=== PATIENT | female | born 1950 | race Caucasian/White ===

== ENCOUNTER 2016-06-20 08:02 | Emergency (ER) | payer MEDICARE, OTHER ==
[~2016-06-20] VITALS: Ht 157.5 cm; Wt 67.0 kg
[~2016-06-20 08:02] MED LIST: AMO500 PO; ESOM20CA PO; ESOM40CA PO; FLUT12HF4 IH; FLUT1DIS22 IH; HYDR-3498 PO; IPRA12.93 IH; NAPR-260 PO
[2016-06-20 08:04] VITALS: Ht 157.5 cm; Wt 67.0 kg
[2016-06-20] MEDS ORDERED: IPRATROPIUM (NEB) 0.5 MG/2.5 ML AMP NEB STA (08:41)
[2016-06-20] MEDS ORDERED: ALBUTEROL 0.5% (NEB) 2.5 MG/0.5 ML AMP NEB STA (08:41)
[2016-06-20] MEDS ORDERED: [UNRECOGNIZED DRUG - CODE] MC (08:57)
[2016-06-20] MEDS ORDERED: ALBU2.5V3 NEB (08:57)
[2016-06-20] MEDS ORDERED: PROM5SYR2 PO (09:00)
--- NOTE | 2016-06-20 09:08 | ERD ---
ER Documentation Chief Complaint Date/Time DATE: 06/20/16 TIME: 09:04 Chief Complaint cough since yesterday HPI This is a 66-year-old female with a history of asthma presenting to the emergency department complaining of cough, congestion, sore throat since yesterday. Patient states that she used albuterol at home and it did not help her. She denies any chest pain or shortness of breath. Patient has tried albuterol and Advair. She denies taking any other medications. ROS All systems reviewed and are negative except as per history of present illness. Medications Home Meds Active Scripts Promethazine HCl/Codeine (Prometh-Codein 6.25-10 mg/5 ml) 5 Ml Syrup, 5 ML PO Q6 , #60 Prov:AMARIS GRACIA PA-C 06/20/16 Nebulizer (AEROECLIPSE) 1 Each Each, 1 EACH MC, #1 Prov:AMARIS GRACIA PA-C 06/20/16 Albuterol Sulfate* (Albuterol Sulfate* Neb) 0.083%-3 Ml Neb, 2.5 MG NEB Q4 Y for SHORTNESS OF BREATH, #30 EA Prov:AMARIS GRACIA PA-C 06/20/16 Hydrocodone Bit-Acetaminophen* ([place]*) 5-325 Mg Tab, 1 TAB PO Q6 Y for PAIN, # 18 TAB Prov:ROYCE PERKINS MD 12/27/15 Amoxicillin* (Amoxicillin*) 500 Mg Cap, 500 MG PO TID, #21 CAP 0 Refills Prov:GERRY RUIZ PA-C 05/29/15 Reported Medications Salmeterol Xinaf-Fluticasone* (Advair HFA*) 12 Gm Aer.w.adap, 12 GM IH AM 08/27/12 Esomeprazole Mag Trihydrate (Nexium) 40 Mg Capsule.dr, 40 MG PO AM 08/27/12 Fluticasone/Salmeterol (Advair 100-50 Diskus) 1 Disk W/Dev Disk.w.dev, 1 DISK IH DAILY 08/06/12 Ipratropium [place]* (Atrovent HFA*) 12.9 Gm Aer.w.adap, 12.9 GM IH DAILY 08/06/12 Naproxen* (Naprosyn*) 500 Mg Tablet, 500 MG PO DAILY 08/06/12 Esomeprazole Mag Trihydrate (Nexium) 20 Mg Capsule.dr, 20 MG PO DAILY 08/06/12 Allergies Allergies: Coded Allergies: latex (Verified Allergy, Unknown, 06/20/16) Uncoded Allergies: MYCINS (Allergy, Unknown, 08/06/12) MARIANELA (Allergy, Unknown, 08/06/12) PMhx/Soc History of Surgery: Yes (Colon Resection,) Anesthesia Reaction: No Hx Neurological Disorder: No Hx Respiratory Disorders: Yes (Asthma) Hx Cardiac Disorders: No Hx Psychiatric Problems: No Hx Miscellaneous Medical Probl: Yes (GERD) Hx Alcohol Use: No Hx Substance Use: No Hx Tobacco Use: No Smoking Status: Never smoker Physical Exam Vitals Vital Signs Date Time Temp Pulse Resp B/P Pulse Ox O2 Delivery O2 Flow Rate FiO2 06/20/16 08:04 98.5 82 20 152/67 96 Physical Exam GENERAL: well-developed/well-nourished, in no apparent distress, non-toxic appearing HEAD: NC/AT, no swelling noted in frontal or maxillary areas EARS: bilateral tympanic membrane is intact without erythema or effusion NARES: nares congested THROAT: oropharynx nonerythematous without exudates, no tonsil enlargement, post nasal drip EYES: Conjunctiva normal NECK: Supple, no lymphadenopathy PULM: CTA bilaterally, no rales, rhonchi, or wheezing heard CV: Normal S1S2, RRR, good capillary refill GI: Soft, non-distended, normal bowel sounds, non-tender BACK: No midline tenderness, no masses EXT No clubbing, cyanosis, or edema NEURO: Alert and Orientated SKIN: Intact, normal turgor PSYCH: Normal mood and mentation Results 24 hrs Current Medications Medications (Trade) Dose Ordered Sig/Olamide Route PRN Reason Start Time Stop Time Status Last Admin Dose Admin Albuterol (Proventil 0.5% (Neb)) 10 mg ONCE STAT NEB 06/20/16 08:41 06/20/16 09:02 DC Ipratropium [place] (Atrovent 0.02% (Neb)) 1.5 mg ONCE STAT NEB 06/20/16 08:41 06/20/16 09:02 DC Procedures/MDM This is a 66-year-old female with a history of asthma presenting to the emergency room complaining of cough, congestion, sore throat since yesterday. Patient states that she has tried albuterol and Advair at home however did not give her any relief. Patient's lungs were clear on auscultation. She did not have any significant wheezing. She did not have labored breathing. Her pulse ox is 96%. I offered patient to do breathing treatments, steroid and chest x- ray in the ED however patient refused chest x-ray and steroids. I have spoke to patient again and she states that she feels a lot better therefore she refuses the albuterol treatment to stating that she feels jittery when she does take it. Patient likely has a viral upper respiratory infection with asthma exacerbation. I have a low suspicion for pneumonia, status asthmaticus, pneumonia, inhaled foreign body, or other life threatening pulmonary emergencies due to physical examination. Hemodynamically stable. Patient was saturating well on room air. Prescription for albuterol nebulizing treatment and promethazine with codeine was given, discussed to have a close follow-up with a primary care physician, discussed to return to the ED if not improving as expected or if condition worsens. Patient understood and agreed with this plan. Departure Diagnosis: Primary Impression: Asthma exacerbation Additional Impression: URI (upper respiratory infection) URI type: unspecified viral URI Qualified Code: J06.9 - Viral upper respiratory tract infection Condition: Fair Patient Instructions: Your Asthma Zone Action Plan (Adult), Asthma Medications , Uri, Viral W/ Wheezing (Adult) Additional Instructions: FOLLOW UP WITH YOUR PRIMARY CARE PHYSICIAN TOMORROW.Return to this facility if you are not improving as expected. Take all medicines as directed. You have been given a medicine which may cause drowsiness.DO NOT DRIVE OR OPERATE DANGEROUS MACHINERY while taking this medicine! Return to this facility if you are not improving as expected. AMARIS GRACIA PA-C Jun 20, 2016 09:08
== END 2016-06-20 09:40 | disposition home or self-care (01) ==
LOC: FTE 08:02
DX: J45.901 Unspecified asthma with (acute) exacerbation (principal); J06.9 Acute upper respiratory infection, unspecified
CPT/HCPCS: 99284

== ENCOUNTER 2016-11-07 16:48 | Emergency (ER) | payer MEDICARE, OTHER ==
[~2016-11-07 16:48] MED LIST changes: +ALBU2.5V3 NEB; +PROM5SYR2 PO; +[UNRECOGNIZED DRUG - CODE] MC
== END 2016-11-07 18:07 | disposition left against medical advice (07) ==
LOC: E/R 16:48
DX: Z53.21 Procedure and treatment not carried out due to patient leaving prior to being seen by health care provider (principal)

== ENCOUNTER 2017-03-06 11:07 | Emergency (ER) | payer SELFPAY ==
[~2017-03-06] VITALS: Ht 165.1 cm; Wt 72.5 kg
[~2017-03-06 11:07] MED LIST changes: -AMO500 PO; +AMOX500C2 PO
[2017-03-06 11:11] VITALS: Ht 165.1 cm; Wt 72.5 kg
== END 2017-03-06 16:26 | disposition left against medical advice (07) ==
LOC: E/R 11:07
DX: Z53.21 Procedure and treatment not carried out due to patient leaving prior to being seen by health care provider (principal)

== ENCOUNTER 2018-03-05 10:58 | Emergency (ER) | END 2018-03-05 12:05 | disposition home or self-care (01) ==

== ENCOUNTER 2018-10-22 04:08 | Emergency (ER) | payer MEDICARE, OTHER ==
[~2018-10-22] VITALS: Wt 73.7 kg
[~2018-10-22 04:08] MED LIST changes: +ATRO IH; -IPRA12.93 IH; -NAPR-260 PO; +NAPR-985 PO
[2018-10-22 04:16] VITALS: BP 176/76; PULSE 65; RESP 18
--- NOTE | 2018-10-22 05:05 | ERD ---
ER Documentation Chief Complaint Chief Complaint CHRONIC PAIN; GROIN, PELVIS, LEFT THIGH HPI This is a 68-year-old female who presents here in the emergency department with complaints of chronic hip pain. Stated she has this for years. Stated that she was placed on tramadol for 2 years by her primary care physician but has changed it to gabapentin. Stated that today her gabapentin is not working and this is the reason why she came here to the emergency department. LMP: Denies headache, head injury, loss of consciousness, dizziness, neck pain, neck stiffness, throat pain, difficulty swallowing, difficulty breathing lying flat, shoulder pain, chest pain, back pain, abdominal pain, nausea, vomiting, constipation, diarrhea, urinary symptoms, or possibility being , loss of bowel and bladder control, trauma, injury, falls, difficulty walking due to pain, numbness or tingling sensation, calf pain, recent travel, recent major surgery in the last 3 weeks, calf pain, recent long travel, recent exposure to any illness, recent antibiotic use in the last 3 months, fever, chills, seizures. Past medical history: Chronic hip pain. Surgical history: Social: Denies smoking, use of alcoholic beverages, use of illegal drugs. ROS All systems reviewed and are negative except as per history of present illness. Medications Home Meds Active Scripts Tramadol HCl (Tramadol HCl) 50 Mg Tablet, 50 MG PO Q4 PRN for PAIN, #4 TAB Prov:TIMOTHY WHARTON 10/22/18 Promethazine HCl/Codeine (Prometh-Codein 6.25-10 mg/5 ml) 5 Ml Syrup, 5 ML PO Q6, #60 Prov:AMARIS GRACIA PA-C 06/20/16 Nebulizer (AEROECLIPSE) 1 Each Each, 1 EACH , #1 Prov:AMARIS GRACIAC 06/20/16 Albuterol Sulfate* (Albuterol Sulfate* Neb) 0.083%-3 Ml Neb, 2.5 MG NEB Q4 PRN for SHORTNESS OF BREATH, #30 EA Prov:AMARIS GRACIAC 06/20/16 Hydrocodone Bit-Acetaminophen* ([place]*) 5-325 Mg Tab, 1 TAB PO Q6 PRN for PAIN, #18 TAB Prov:ROYCE PERKINS MD 12/27/15 Amoxicillin* (Amoxicillin*) 500 Mg Cap, 500 MG PO TID, #21 CAP 0 Refills Prov:GERRY RUIZ PA-C 05/29/15 Reported Medications Salmeterol Xinaf-Fluticasone* (Advair HFA*) 12 Gm Aer.w.adap, 12 GM IH AM 08/27/12 Esomeprazole Mag Trihydrate (Nexium) 40 Mg Capsule.dr, 40 MG PO AM 08/27/12 Fluticasone/Salmeterol (Advair 100-50 Diskus) 1 Disk W/Dev Disk.w.dev, 1 DISK IH DAILY 08/06/12 Ipratropium [place]* (Atrovent HFA*) 12.9 Gm Aer.w.adap, 12.9 GM IH DAILY 08/06/12 Naproxen* (Naprosyn*) 500 Mg Tablet, 500 MG PO DAILY 08/06/12 Esomeprazole Mag Trihydrate (Nexium) 20 Mg Capsule.dr, 20 MG PO DAILY 08/06/12 Allergies Allergies: Coded Allergies: latex (Verified Allergy, Unknown, 06/20/16) Uncoded Allergies: MYCINS (Allergy, Unknown, 08/06/12) MARIANELA (Allergy, Unknown, 08/06/12) PMhx/Soc History of Surgery: Yes (Colon Resection,) Anesthesia Reaction: No Hx Neurological Disorder: No Hx Respiratory Disorders: Yes (Asthma) Hx Cardiac Disorders: No Hx Psychiatric Problems: No Hx Miscellaneous Medical Probl: Yes (GERD) Hx Alcohol Use: No Hx Substance Use: No Hx Tobacco Use: No Smoking Status: Never smoker Physical Exam Vitals Vital Signs Date Temp Pulse Resp B/P (MAP) Pulse Ox O2 O2 Flow FiO2 Time Delivery Rate 10/22/18 97.6 65 18 176/76 97 04:16 (109) Physical Exam Const: No acute distress Head: Atraumatic Eyes: Normal Conjunctiva ENT: Normal External Ears, Nose and Mouth. Neck: Full range of motion. No meningismus. Resp: Clear to auscultation bilaterally Cardio: Regular rate and rhythm, no murmurs Abd: Soft, non tender, non distended. Normal bowel sounds Skin: No petechiae or rashes Back: No midline or flank tenderness. No saddle anesthesia. Ext: No cyanosis, or edema. Bilateral hips are stable and unremarkable. L eft hip has good and full range of motion. Skin on left hip is not warm to touch. Left hip is no swelling. Very low suspicion of septic bursitis/septic joint. Right hip is unremarkable. No neurovascular deficit. Ambulatory with steady gait. Neur: Awake and alert. No neurological deficits. Psych: Normal Mood and Affect Results 24 hrs Current Medications Medications Dose Sig/Olamide Start Time Status Last (Trade) Ordered Route PRN Stop Time Admin Dose Reason Admin 1 tab ONCE ONCE 10/22/18 DC Acetaminophen PO 05:30 / 10/22/18 05:31 Hydrocodone Bitart ([place] (96)) Procedures/MDM Diagnostic tests: Clinical exam. Patient refuses diagnostic imaging and blood works. Treatment: [place] p.o. Re-evaluation: Denies pain. Differential diagnosis I have low suspicion for septic bursitis, septic joint, inguinal hernia with strangulation/incarceration, septic stone, obstructing kidney stone, renal failure. Final diagnosis: Chronic pain. Prescription: Tramadol. Follow-up with PCP in the next 24-48 hours. Follow-up with pain specialist in the next 24 to 48 hours. Come back here in the emergency department for any new symptoms or any worsening symptoms. All questions and concerns were answered. Patient and family members verbalized understanding and agreed with plan of care. Hemodynamically stable on discharge. Departure Diagnosis: Primary Impression: Chronic pain Condition: Stable Additional Instructions: Follow-up with PCP in the next 24-48 hours. Follow-up with pain specialist in the next 24 to 48 hours. Come back here in the emergency department for any new symptoms or any worsening symptoms. TIMOTHY WHARTON October 22, 2018 05:05
[2018-10-22] MEDS ORDERED: TRAM50TA2 PO (05:15)
[2018-10-22] MEDS ORDERED: HYDROCODONE/APAP (10/325) TAB PO ONE (05:30)
== END 2018-10-22 05:16 | disposition home or self-care (01) ==
LOC: FTE 04:08
DX: G89.29 Other chronic pain (principal); J45.909 Unspecified asthma, uncomplicated; Z91.040 Latex allergy status
CPT/HCPCS: 99283